=== PATIENT | female | born 1950 | race Caucasian/White ===

== ENCOUNTER 2020-08-12 16:25 | Emergency (ER) | payer MEDICARE ==
[~2020-08-12] VITALS: Ht 149.9 cm; Wt 52.8 kg
--- NOTE | 2020-08-12 16:55 | NUR ---
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
--- NOTE | 2020-08-12 17:27 | NUR ---
PT CLAIMS PAIN LEVEL 6/10. PAIN IS RELIEVED WHEN TALKING "WHEN I TALK, IM DISTRACTED FROM THE PAIN." PAIN WAS ALSO RELIVED DURING PHYSICAL ASSESSMENT WHEN SNA APPLIED LIGHT PRESSURE EXTERNALLY ON THE JAW. PT CLAIMS SHE TOOK "8 OR 9 PILLS OF IBUEPROFEN YESTERDAY BECAUSE THE PAIN WAS SO UNBARABLE"
[2020-08-12] MEDS ORDERED: PENICILLIN VK 500MG TABLET ONE (17:53)
[2020-08-12] MEDS ORDERED: ACETAMINOPHEN 500 MG TABLET ONE (17:53)
[2020-08-12] MEDS ORDERED: PENICILLIN VK 500MG TABLET PO ONE (18:00)
[2020-08-12] MEDS ORDERED: ACETAMINOPHEN 500 MG TABLET PO ONE (18:00)
--- NOTE | 2020-08-12 18:02 | NUR ---
Pt given PO meds as ordered. Awaiting D/C paperwork.
[2020-08-12 18:23] VITALS: BP 124/63
== END 2020-08-12 18:25 | disposition home or self-care (01) ==
LOC: ED 18:18
DX: K04.7 Periapical abscess without sinus (principal); R51.9 Headache, unspecified
CPT/HCPCS: 99283